=== PATIENT | male | born 1950 | race Caucasian/White ===

== ENCOUNTER 2020-12-23 14:00 | Outpatient (CLI) | payer MEDICARE, BC ==
[~2020-12-23 14:00] MED LIST: ALLO100T PO; AMLO10TA48 PO; HYDR25TA4 PO; LOPE2CAP PO; LOSA25TA96 PO
== END 2020-12-23 23:59 | disposition home or self-care (01) ==
LOC: CARD DIAG 14:00
PROVIDERS: ATTEND Internal Medicine Hematology & Oncology
DX: C91.10 Chronic lymphocytic leukemia of B-cell type not having achieved remission (principal); I08.8 Other rheumatic multiple valve diseases
CPT/HCPCS: 93306

== ENCOUNTER 2025-05-29 09:21 | Outpatient (CLI) | payer MEDICARE, BC ==
[~2025-05-29 09:21] MED LIST changes: +AMLO-888 PO; -AMLO10TA48 PO; +LOSA-415 PO; -LOSA25TA96 PO
--- NOTE | 2025-05-29 14:53 | RADIOLOGY REPORT ---
PROCEDURE: MR MRI ORBITS FACE AND NECK Indication: CA OF SKIN, SCALP, NECK COMPARISON: None TECHNIQUE: Limited sequences of the facial /neck region are obtained. FINDINGS/IMPRESSION: Essentially nondiagnostic examination. Patient unable to tolerate examination. Sagittal T1, axial T1, axial T2 and coronal inversion recovery images provided. Examination severely degraded by motion. Nondiagnostic examination T2 bright lesion in the posterior neck tissues measuring 1.5 X 0.8 cm, incompletely characterized. Correlate with malignancy history. T2 isointense, T1 dark lesion within the right parotid superficial lobe measuring 1.6 cm. Recommend ENT consultation for further evaluation and MRI neck with and without contrast. Recommend repeat MRI of the face and neck with and without contrast if patient is able to tolerate the examination.
== END 2025-05-30 23:59 | disposition home or self-care (01) ==
LOC: MRI 09:21
PROVIDERS: ATTEND Student in an Organized Health Care Education/Training Program
DX: C44.49 Other specified malignant neoplasm of skin of scalp and neck (principal)
CPT/HCPCS: 70540

== ENCOUNTER 2025-07-10 08:00 | Day surgery (SDC) | payer MEDICARE, BC ==
[~2025-07-10] VITALS: Ht 170.2 cm; Wt 80.9 kg
[2025-07-10] VITALS (8 sets, daily range): BP systolic 148–163; BP diastolic 60–98; PULSE 67–75; RESP 16; TEMP 97.8; O2SAT 93–98
[2025-07-10] MEDS ORDERED: CARB1TAB37 PO (08:50)
[2025-07-10] MEDS ORDERED: CHOL500050 PO (08:50)
[2025-07-10] MEDS ORDERED: AMA100C PO (08:50)
[2025-07-10] MEDS ORDERED: POTA-207 PO (08:50)
[2025-07-10] MEDS ORDERED: MULT-1085 PO (08:50)
[2025-07-10] MEDS ORDERED: GABA-530 PO (08:50)
[2025-07-10] MEDS ORDERED: ACET-812 PO (08:50)
[2025-07-10] MEDS ORDERED: SERT-434 PO (08:50)
[2025-07-10] MEDS ORDERED: ZAR2.5T PO (08:50)
[2025-07-10] MEDS ORDERED: LOSA50TA64 PO (08:50)
[2025-07-10] MEDS ORDERED: LEVO125T8 PO (08:50)
--- NOTE | 2025-07-10 14:36 | PROGRESS NOTE ---
H&P - Interval Note Providers to CC ~ Patient examined and condition: Yes Interval changes as follows: Paper h and p in chart today. Here for left parotid mass. Risks benefits alt of US fna of this mass d/w pt and spouse, informed consent disclosed. ALEK RIOS MD Jul 10, 2025 14:36
--- NOTE | 2025-07-10 14:37 | PROGRESS NOTE ---
Progress Note - Angio Providers to CC ~ Angio Progress Note: S/P left parotid gland mass fna biopsy x 4 passes with both 22 and 25 g needles with slides made and carbowax/cytospin containing samples. No immediate complications. EBL less than 2 cc. Dictated. ALEK RIOS MD Jul 10, 2025 14:37
--- NOTE | 2025-07-10 18:18 | RADIOLOGY REPORT ---
Left parotid gland FNA biopsy HISTORY: Melanoma. Evaluate atypical superficial left parotid gland mass for unknown primary or secondary malignancy After explanation of the above procedure and informed consent, patient prepped and draped in usual sterile fashion. A surgical timeout was performed. Via ultrasound guidance and both 25-gauge and 22-gauge needle FNA passes, a total of 4 passes were made into a hypoechoic somewhat decreased vascularity mass within the left parotid gland. Samples were placed in RPMI as well as Carbo wax. Slides were also made. A total of 3 cc 1% lidocaine solution used for local anesthesia. There is no evidence of hematoma or extravasation following biopsy with color Doppler imaging utilized. Pression: Ultrasound-guided FNA biopsy of somewhat superficial left parotid gland hypoechoic mass
== END 2025-07-10 14:30 | disposition home or self-care (01) ==
LOC: SSTAY O 08:00
PROVIDERS: ATTEND Radiology Diagnostic Radiology
DX: D11.0 Benign neoplasm of parotid gland (principal); C95.90 Leukemia, unspecified not having achieved remission; G20.A1 Parkinson's disease without dyskinesia, without mention of fluctuations; I10 Essential (primary) hypertension; Z79.899 Other long term (current) drug therapy; Z80.8 Family history of malignant neoplasm of other organs or systems
CPT/HCPCS: 10005; 88173; 88305; 88341; 88342; A4615